=== PATIENT | female | born 1990 | race Caucasian/White ===

== ENCOUNTER → 2016-11-25 | Outpatient (CLI) | payer BC ==
--- NOTE | 2016-11-25 13:35 | RAD ---
Exam performed: Single view chest and[ left] rib series. History: [Left-sided chest pain for 4 days status post fall patient landed on left chest Date of service:[ 11/25/16] . Comparison: [None available]. Findings: AP and oblique radiographs of [ left] ribs reveal the osseous structures to be well aligned and apparently intact. Evidence of fracture is absent. There is no pleural effusion or pneumothorax. As visualized, the underlying pulmonary anatomy appears unremarkable. Impression: No definite fractures identified..
--- NOTE | 2016-11-25 16:19 | RAD ---
Two-view abdomen radiographs 11/25/2016 Clinical history: Abdominal pain for two days. Diarrhea. 2 AP supine and 2 AP erect digital radiographs of the abdomen/pelvis were obtained. The abdominal bowel gas pattern is nonobstructive. A moderate amount stool is seen throughout the colon. There is no evidence of free air. The lung bases are clear. The osseous structures are grossly intact. No radiopaque calculus is seen. Impression: Nonobstructive bowel gas pattern.
== END | disposition home or self-care (01) ==
LOC: DXRADRC 10:52
PROVIDERS: ATTEND Physician Assistant
DX: R07.81 Pleurodynia (principal); R10.9 Unspecified abdominal pain; R19.7 Diarrhea, unspecified; W19.XXXA Unspecified fall, initial encounter; Y93.89 Activity, other specified; Y92.89 Other specified places as the place of occurrence of the external cause; Y99.8 Other external cause status
CPT/HCPCS: 71101; 74020

== ENCOUNTER → 2016-12-16 | Outpatient (CLI) | payer BC ==
--- NOTE | 2016-12-16 14:58 | RAD ---
Indication pain. No history of injury. AP oblique and lateral views of the right foot were obtained. No bony abnormality is seen
== END | disposition home or self-care (01) ==
LOC: DXRADRC 14:40
PROVIDERS: ATTEND Physician Assistant
DX: M79.671 Pain in right foot (principal)
CPT/HCPCS: 73630

== ENCOUNTER → 2018-08-05 | Outpatient (CLI) | payer BC ==
--- NOTE | 2018-08-05 16:04 | RAD ---
Left forearm, 2 views, 08/05/2018: HISTORY: Injury No acute fracture or dislocation is identified. The soft tissues are unremarkable. IMPRESSION: No acute abnormality is detected. Electronically signed by: Kai Mcclure MD (08/05/2018 4:02 PM) [facility]
== END | disposition home or self-care (01) ==
LOC: PMG 11:15
PROVIDERS: ATTEND Physician Assistant
DX: S50.12XA Contusion of left forearm, initial encounter (principal); X58.XXXA Exposure to other specified factors, initial encounter; Y93.89 Activity, other specified; Y92.89 Other specified places as the place of occurrence of the external cause; Y99.8 Other external cause status
CPT/HCPCS: 73090

== ENCOUNTER → 2020-03-05 | Outpatient (CLI) | payer BC ==
--- NOTE | 2020-03-05 15:20 | RAD ---
2 views the right foot without comparison for pain for one month, no known injury. FINDINGS: There is no fracture, dislocation, or acute osseous abnormality. Joints and soft tissues are grossly unremarkable. No radiopaque foreign bodies. IMPRESSION: 1. No acute osseous abnormality. Electronically signed by: Des Mar MD (03/05/2020 3:16 PM) [id number]
== END ==
LOC: RAD 09:54
PROVIDERS: ATTEND Physician Assistant
DX: M79.671 Pain in right foot (principal); R20.0 Anesthesia of skin
CPT/HCPCS: 73620